=== PATIENT | male | born 1960 | race African-American/Black ===

== ENCOUNTER 2017-06-07 22:13 | Emergency (ER) | payer OTHER ==
[~2017-06-07] VITALS: Ht 182.9 cm; Wt 102.1 kg
--- NOTE | ~2017-06-07 | EKG ---
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: [facility] : 1960 Requested By: Srikanth Harvey Order Number: [id number] MD: Jhonatan Brody Measurements Intervals [place] Rate: 118 P: 73 VT: 160 QRS: 70 QRSD: 92 T: 34 QT: 321 QTc: 450 Interpretive Statements Sinus rhythm with multiple PACs or atrial tachycardia Atrial premature complexes Probable left atrial enlargement Baseline wander in lead(s) V1 No previous ECG available for comparison Electronically Signed On 06-08-2017 8:09:40 CDT by Jhonatan Brody [email or web address] <ELECTRONICALLY SIGNED> By: Jhonatan Brody MD 06/08/17 08 17 17 Jhonatan Brody MD /NATASHA
[2017-06-07 22:54] LABS: ABSOLUTE NEUTROPHILS 10.4 thou/uL (1.4-8.2); BASOPHILS 0.6 % (0.0-2.0); EOSINOPHILS 2.3 % (0.0-3.0); HEMATOCRIT 41.9 % (42.0-52.0); HEMOGLOBIN 14.2 gm/dL (14.0-18.0); LYMPHOCYTES 21.3 % (24.0-44.0); MCH 28.7 pg (26.0-34.0); MCHC 33.8 g/dL (28.0-37.0); MCV 85.2 fL (80.0-100.0); MONOCYTES 9.1 % (1.0-8.0); PLATELET COUNT 432 thou/uL (150-400); POLYS 66.7 % (36.0-66.0); RBC 4.92 mil/uL (4.50-6.00); RDW 13.9 % (10.5-14.5); WBC 15.5 thou/uL (4.0-11.0)
[2017-06-07 23:02] LABS: MANUAL DIFF NO
[2017-06-07 23:12] LABS: ANION GAP 8 mmol/L (7-16); BUN 13 mg/dL (7-18); CALCIUM 9.2 mg/dL (8.5-10.1); CHLORIDE 102 mmol/L (98-107); CO2 26 mmol/L (21-32); GLUCOSE 146 mg/dL (74-106); POTASSIUM 4.1 mmol/L (3.5-5.1); SODIUM 136 mmol/L (136-145)
[2017-06-07 23:14] LABS: APTT 22.2 Seconds (24.5-32.8)
[2017-06-07 23:18] LABS: ALKALINE PHOSPHATASE 54 U/L (46-116); SGOT 24 U/L (15-37); SGPT 27 U/L (30-65); TOTAL BILIRUBIN 0.4 mg/dL (<0.1-1.0); TOTAL PROTEIN 7.8 g/dL (6.4-8.2); TROPONIN-I < 0.04 ng/mL (<0.04-0.07)
[2017-06-08] MEDS ORDERED: TESSALON PERLE100 MG PO (00:38)
[2017-06-08] MEDS ORDERED: FLOVENT HFA 4444 MCG INH (00:38)
[2017-06-08] MEDS ORDERED: VENTOLIN HFA 1818 GM INH (00:38)
[2017-06-08] MEDS ORDERED: ALBUTEROL2.5 MG/31 INH (00:49)
[2017-06-08 00:53] VITALS: BP 146/79
== END 2017-06-08 00:56 | disposition home or self-care (01) ==
LOC: ER 22:13
PROVIDERS: Emergency Medicine
DX: J20.9 Acute bronchitis, unspecified (principal)